=== PATIENT | male | born 1965 | race Two or more races ===

== ENCOUNTER 2019-07-12 13:19 | Emergency (ER) | payer OTHER ==
[~2019-07-12] VITALS: Ht 175.3 cm; Wt 108.7 kg
[2019-07-12 13:34] VITALS: BP 134/91
[2019-07-12] MEDS ORDERED: KETOROLAC 30 MG/1 ML IM ONE (14:00)
[2019-07-12] MEDS ORDERED: HYDROcodone/APAP 5/325 TABLET PO ONE (14:00)
[2019-07-12] MEDS ORDERED: HYDROcodone/APAP 5/325 TABLET ONE (14:02)
[2019-07-12] MEDS ORDERED: KETOROLAC 30 MG/1 ML ONE (14:02)
--- NOTE | 2019-07-12 14:06 | NUR ---
PT C/O LT KNEE AND ANKLE PAIN. 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
[2019-07-12 14:08] LABS: BASOPHILS # (AUTO) 0.03 x10^3/uL (0-0.1); BASOPHILS % (AUTO) 0 % (0-1); EOSINOPHILS # (AUTO) 0.06 x10^3/uL (0-0.4); EOSINOPHILS % (AUTO) 1 % (1-7); LYMPHOCYTES # (AUTO) 2.21 x10^3/uL (1-3.4); LYMPHOCYTES % (AUTO) 21 % (22-44); MD NO; MEAN CORPUSCULAR HEMOGLOBIN 30.1 pg (27.5-34.5); MEAN CORPUSCULAR VOLUME 88.5 fL (81-97); MEAN PLATELET VOLUME 7.9 fL (7.4-10.4); MONOCYTES # (AUTO) 0.56 x10^3/uL (0.2-0.8); MONOCYTES % (AUTO) 5 % (2-9); NEUTROPHILS # (AUTO) 7.61 x10^3/uL (1.8-6.8); NEUTROPHILS % (AUTO) 73 % (42-75); PLATELET COUNT 275 x10^3/uL (130-400); RED BLOOD COUNT 5.09 x10^6/uL (4.38-5.82); RED CELL DISTRIBUTION WIDTH 13.6 % (9.4-14.8)
[2019-07-12] MEDS ORDERED: [UNRECOGNIZED DRUG - CODE] PO (14:09)
[2019-07-12] MEDS ORDERED: LISI-167 PO (14:09)
[2019-07-12] MEDS ORDERED: METF500T17 PO (14:09)
[2019-07-12 14:15] LABS: ALBUMIN 4.2 g/dL (3.4-5.0); ANION GAP 5 mmol/L (5-15); CALCIUM 9.3 mg/dL (8.5-10.1); CHLORIDE 104 mmol/L (98-107); CREATININE 0.86 mg/dL (0.7-1.3)
--- NOTE | 2019-07-12 14:16 | NUR ---
NORCO PO GIVEN PER EMAR. WILL CONSULT HAIDER VANCE RE: TORADOL.
--- NOTE | 2019-07-12 14:24 | NUR ---
HAIDER SEN: HOLD TORADOL
--- NOTE | 2019-07-12 15:04 | NUR ---
CRUTCHES ORDERED FROM [facility]
== END 2019-07-12 15:36 | disposition home or self-care (01) ==
LOC: ED 15:30
DX: M25.562 Pain in left knee (principal); M25.572 Pain in left ankle and joints of left foot; M10.9 Gout, unspecified
CPT/HCPCS: 36415; 80048; 82040; 84550; 85025; 99284